=== PATIENT | female | born 1955 | race Caucasian/White ===

== ENCOUNTER → 2023-10-27 13:07 | Outpatient (REF) | payer MEDICARE, SELFPAY | LOC: WDC 13:07 | PROVIDERS: ATTENDING PHYSICIAN Physician Assistant | DX: Z12.31 Encounter for screening mammogram for malignant neoplasm of breast (principal) | CPT/HCPCS: 77063; 77067 ==

== ENCOUNTER → 2023-11-23 08:04 | Outpatient (REF) | payer MEDICARE, SELFPAY | LOC: RAD 08:04 | PROVIDERS: ATTENDING PHYSICIAN Physician Assistant | DX: Z13.820 Encounter for screening for osteoporosis (principal); Z78.0 Asymptomatic menopausal state; M85.88 Other specified disorders of bone density and structure, other site | CPT/HCPCS: 77080 ==

== ENCOUNTER → 2024-12-06 17:28 | Outpatient (REF) | payer MEDICARE, SELFPAY | LOC: WDC 17:28 | PROVIDERS: ATTENDING PHYSICIAN Physician Assistant | DX: Z12.31 Encounter for screening mammogram for malignant neoplasm of breast (principal) | CPT/HCPCS: 77063; 77067 ==